=== PATIENT | male | born 1980 | race African-American/Black ===

== ENCOUNTER 2017-02-06 04:29 | Inpatient (IN) | payer MEDICAID, OTHER ==
[~2017-02-06] VITALS: Ht 177.8 cm; Wt 76.0 kg
[2017-02-06] VITALS (9 sets, daily range): BP systolic 105–139; BP diastolic 66–78; O2SAT 100
[2017-02-06] MEDS ORDERED: ONDANSETRON 4MG/2ML VIAL (J2405) IV ONE (05:30)
[2017-02-06] MEDS ORDERED: MORPHINE 4 MG/ML 1ML SYRINGE IV ONE (05:30)
[2017-02-06 05:38] LABS: BASO % 0.2 % (0.0-1.0); EOS # 0.2 K/mm3 (0.0-0.50); EOS % 1.4 % (0.0-3.0); LARGE UNSTAINED CELL # 0.1 K/mm3 (0.0-0.4); LYMPH # 2.5 K/mm3 (1.5-4.5); LYMPH % 20.8 % (24.0-44.0); MEAN CORPUSCULAR HEMOGLOBIN 31.5 pg (27.0-33.0); MEAN CORPUSCULAR HGB CONC 33.9 g/dl (32.0-36.5); MEAN CORPUSCULAR VOLUME 93.1 fl (80.0-96.0); MONO # 0.6 K/mm3 (0.0-0.8); NEUTROPHILS # 8.1 K/mm3 (1.8-7.7); NEUTROPHILS % 71.6 % (36.0-66.0); PLATELET COUNT, AUTOMATED 399 k/mm3 (150-450); RED CELL DISTRIBUTION WIDTH 11.8 % (11.5-14.5); WHITE BLOOD COUNT 11.3 K/mm3 (4.0-10.0)
--- NOTE | 2017-02-06 05:41 | REP ---
Clinical: Trauma. Comparison: 12/24/2005. Findings: Ventricles, sulci, and cisterns are normal in appearance and position. Scott-white differentiation is maintained. No acute intracranial hemorrhage, mass/mass effect, pathology or trauma noted. No extra-axial fluid collection identified. Calvarium appears intact. Sinuses are well aerated and clear. Prominence to the soft tissues overlying the bilateral temporal frontal parietal lobes (right greater than left) may represents scalp contusions although findings are somewhat similar to prior examination of 2005. Impression: No acute intracranial pathology or trauma/injury appreciated. Cannot exclude soft tissue scalp contusions. Signed by Kwan Roberson MD 02/06/2017 05:32 A
[2017-02-06 05:43] LABS: VENOUS BASE EXCESS -0.5 (-2.0-2.0); VENOUS O2 SATURATION 94.9 % (60.0-80.0); VENOUS PARTIAL PRESSURE CO2 43.5 mmHg (38.0-50.0); VENOUS PARTIAL PRESSURE O2 77.8 mmHg (30.0-50.0); VENOUS TOTAL CO2 26.2 MEQ/L (24.0-28.0)
--- NOTE | 2017-02-06 05:43 | REP ---
Clinical: Trauma . Technique: Axial noncontrast images from the skull base to the thoracic inlet with coronal and sagittal re-formations Findings: Normal alignment and lordosis is maintained. Cervical vertebral bodies including transverse processes and spinous processes are intact and there is no evidence for acute fracture / compression injury or subluxation. Spinal canal is patent. Posterior elements are intact. Paravertebral soft tissues are normal. Impression: Normal noncontrast cervical spine CT. No evidence for acute pathology or trauma/injury. Signed by Kwan Roberson MD 02/06/2017 05:34 A
[2017-02-06] MEDS ORDERED: LIDOCAINE 1% MDV 20ML VIAL SC SCH (05:45)
[2017-02-06] MEDS ORDERED: LIDOCAINE 1% SDV INJ 30 ML VIAL SC SCH (05:45)
[2017-02-06 05:48] LABS: INR 1.01
[2017-02-06] MEDS ORDERED: MIDAZOLAM INJ 5 MG/ML VIAL (J2250) As Ordered ONE (05:53)
[2017-02-06 05:55] LABS: ANION GAP 11 MEQ/L (8-16); BLOOD UREA NITROGEN 9 MG/DL (7-18); CALCIUM LEVEL 8.9 MG/DL (8.5-10.1); CARBON DIOXIDE LEVEL 23 MEQ/L (21-32); CHLORIDE LEVEL 108 MEQ/L (98-107); CREATININE FOR GFR 0.99 MG/DL (0.70-1.30); GLOMERULAR FILTRATION RATE > 60.0 (>60); GLUCOSE, FASTING 100 MG/DL (70-105); POTASSIUM SERUM 4.2 MEQ/L (3.5-5.1); SODIUM LEVEL 142 MEQ/L (136-145)
[2017-02-06] MEDS ORDERED: MIDAZOLAM INJ 2 MG/2 ML VIAL (J2250) IV ONE (06:00)
--- NOTE | 2017-02-06 06:00 | REP ---
Clinical: Trauma. Technique: Axial noncontrast images from the thoracic inlet to the upper abdomen with coronal and sagittal re-formations. Findings: There is a large left tension pneumothorax causing contralateral mediastinal shift and associated compression to the right hemithorax. Obvious collapse to the left upper lobe and left lower lobes noted. The tracheobronchial tree remains patent. The right hemithorax is relatively well aerated without consolidation/contusion, effusion or significant pneumothorax (minuscule subpleural gas noted along the medial aspect of the upper right lung zone). With the exception of the above-mentioned mediastinal shift, the thoracic aorta, pulmonary vasculature, heart and pericardium appear normal by noncontrast evaluation. No adenopathy. No obvious left rib fracture identified. Thoracic vertebral bodies and sternum appear intact. Impression: 1. Large left-sided tension pneumothorax with contralateral mediastinal shift and compression to the aerated right lung. 2. No obvious rib fracture or skeletal trauma/injury appreciated. Signed by Kwan Roberson MD 02/06/2017 05:51 A
[2017-02-06] MEDS ORDERED: ACETAMINOPHEN TAB 650MG DOSE (2X325MG) PO PRN (06:30)
[2017-02-06] MEDS ORDERED: LEVALBUTEROL 1.25 MG/0.5 ML CONCENTRATE NEB NEB PRN (06:30)
[2017-02-06] MEDS ORDERED: ETOMIDATE INJ 20MG/10ML VIAL IV STA (06:30)
[2017-02-06] MEDS ORDERED: ONDANSETRON 4MG/2ML VIAL (J2405) IV PRN (06:30)
[2017-02-06] MEDS ORDERED: ROCURONIUM BROMIDE 50 MG/5 ML VIAL IV SCH (06:30)
[2017-02-06] MEDS ORDERED: PROPOFOL 1,000 MG in APPROPRIATE DILUENT 1 EA IV SCH (06:30)
[2017-02-06] MEDS ORDERED: BISACODYL 10 MG SUPP PR PRN (06:30)
[2017-02-06] MEDS ORDERED: PERCOCET 5MG/325MG TAB PO PRN ×2 (06:30)
[2017-02-06 06:31] LABS: ABG BASE EXCESS -2.6 (-2.0-2.0); ABG PARTIAL PRESSURE CO2 42.7 mmHg (35.0-45.0); ABG PARTIAL PRESSURE O2 160.7 mmHg (75.0-100.0); ABG STANDARD HCO3 22.4 MEQ/L (22.0-26.0); ABG TOTAL CO2 24.3 MEQ/L (22.0-29.0); ABG pH (ARTERIAL) 7.349 UNITS (7.350-7.450)
--- NOTE | 2017-02-06 06:33 | REP ---
Clinical: Status post chest tube placement. Findings: Chest tube has been placed in the left upper hemithorax with re-expansion of the left lung. Small residual pneumothorax cannot be excluded. Endotracheal tube approximately 3.5 cm above the zoran. Mediastinum and cardiac silhouette are normal in appearance and position. Right hemithorax appears clear. No obvious consolidation, contusion, or effusion. Skeletal structures are intact. Impression: Status post left chest tube with appropriate re-expansion of the left lung and normal positioning to the mediastinal structures. Signed by Kwan Roberson MD 02/06/2017 06:25 A
[2017-02-06] MEDS ORDERED: DERMABOND TOPICAL SKIN ADHESIVE TOP ONE (06:45)
[2017-02-06] MEDS: KETOROLAC 30 MG/ML VIAL (J1885) IV SCH ×3 (07:00→18:40)
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
[2017-02-06] MEDS: LEVALBUTEROL 1.25 MG/0.5 ML CONCENTRATE NEB NEB SCH ×3 (08:00→19:38)
[2017-02-06] MEDS: PANTOPRAZOLE 40MG TAB (PROTONIX) PO SCH (09:00)
[2017-02-06] MEDS: DOCUSATE SODIUM 100 MG CAP PO SCH ×2 (09:00→20:46)
[2017-02-06] MEDS: HEPARIN SOD (PORCINE) 5000 UNITS/ML VIAL SC SCH ×2 (09:00→20:46)
[2017-02-06] MEDS: MOM 30ML SUSPENSION UDC PO SCH (09:00)
[2017-02-06] MEDS ORDERED: no home medications (09:11)
[2017-02-06] MEDS: KCL 20MEQ IN D5/NS 1000ML 1,000 ML IV SCH ×2 (13:09→20:46)
[2017-02-07] VITALS (9 sets, daily range): BP systolic 113–132; BP diastolic 66–75; O2SAT 100
[2017-02-07] MEDS: KETOROLAC 30 MG/ML VIAL (J1885) IV SCH ×4 (01:33→18:41)
[2017-02-07] MEDS: LEVALBUTEROL 1.25 MG/0.5 ML CONCENTRATE NEB NEB SCH ×4 (02:28→20:30)
[2017-02-07 04:38] LABS: BASO % 0.2 % (0.0-1.0); EOS # 0.1 K/mm3 (0.0-0.50); EOS % 1.2 % (0.0-3.0); LARGE UNSTAINED CELL # 0.1 K/mm3 (0.0-0.4); LARGE UNSTAINED CELL % 1.2 % (0.0-4.0); LYMPH # 1.8 K/mm3 (1.5-4.5); LYMPH % 23.4 % (24.0-44.0); MEAN CORPUSCULAR HEMOGLOBIN 31.5 pg (27.0-33.0); MEAN CORPUSCULAR HGB CONC 32.7 g/dl (32.0-36.5); MEAN CORPUSCULAR VOLUME 96.4 fl (80.0-96.0); MONO # 0.6 K/mm3 (0.0-0.8); MONO % 8.6 % (0.0-5.0); NEUTROPHILS # 4.7 K/mm3 (1.8-7.7); NEUTROPHILS % 65.4 % (36.0-66.0); RED CELL DISTRIBUTION WIDTH 11.9 % (11.5-14.5); WHITE BLOOD COUNT 7.1 K/mm3 (4.0-10.0)
[2017-02-07 04:56] LABS: PLATELET COUNT, AUTOMATED 268 k/mm3 (150-450)
[2017-02-07 05:01] LABS: ANION GAP 5 MEQ/L (8-16); BLOOD UREA NITROGEN 9 MG/DL (7-18); CALCIUM LEVEL 7.8 MG/DL (8.5-10.1); CARBON DIOXIDE LEVEL 29 MEQ/L (21-32); CHLORIDE LEVEL 106 MEQ/L (98-107); GLOMERULAR FILTRATION RATE > 60.0 (>60); GLUCOSE, FASTING 117 MG/DL (70-105); POTASSIUM SERUM 3.6 MEQ/L (3.5-5.1); SODIUM LEVEL 140 MEQ/L (136-145)
[2017-02-07 06:15] LABS: ABG BASE EXCESS 1.6 (-2.0-2.0); ABG HCO3 27.4 MEQ/L (22.0-26.0); ABG PARTIAL PRESSURE CO2 47.5 mmHg (35.0-45.0); ABG PARTIAL PRESSURE O2 158.1 mmHg (75.0-100.0); ABG TOTAL CO2 28.9 MEQ/L (22.0-29.0); ABG pH (ARTERIAL) 7.379 UNITS (7.350-7.450)
--- NOTE | 2017-02-07 08:16 | REP ---
PA and lateral chest: Comparison is 02/06/2017. The left chest tube is unchanged. There is no pneumothorax. There is a small zone of discoid atelectasis in the left costophrenic angle. Lung alonso otherwise clear. Cardiac size is normal. The anjana, mediastinum, and bony thorax are unremarkable. Signed by Aime Silva MD 02/07/2017 08:08 A
[2017-02-07] MEDS: DOCUSATE SODIUM 100 MG CAP PO SCH ×2 (08:23→20:14)
[2017-02-07] MEDS: HEPARIN SOD (PORCINE) 5000 UNITS/ML VIAL SC SCH ×2 (08:23→20:14)
[2017-02-07] MEDS: MOM 30ML SUSPENSION UDC PO SCH (08:23)
[2017-02-07] MEDS: PANTOPRAZOLE 40MG TAB (PROTONIX) PO SCH (08:23)
[2017-02-07] MEDS: KCL 20MEQ IN D5/NS 1000ML 1,000 ML IV SCH (08:23)
--- NOTE | 2017-02-07 12:58 | IPN ---
DATE: 02/07/2017 Mr. Callaways personality has changed night and day. He is quite civilized and polite. Very cooperative. In fact, he offered us an apology this morning. His pain is being well controlled at the chest tube insertion site and he is not complaining of shortness of breath. There is no leak from his chest tube. His vital signs show a T-max of 100.1. He is now 98.3! Heart rate ranges between 67 and 53 and is sinus rhythm with a respiratory rate that is constant at 18 who is 100-99% saturated on 2 liters nasal cannula. His blood pressure is ranging between 115/67 to 129/66. His intake and output the past 24 hours has been recorded as 1095 in and 561 out for a positivity of 534 mL. He has put out 11 mL from the chest tube and as noted above, there is no air leak. Weight is pending today. On physical examination, his lungs show equal breath sounds on either side. There are no wheezes, rhonchi or rales. Percussion note is full to the diaphragm. Cardiac exam is without murmurs, clicks, gallops or rubs. I cannot feel his PMI. S1 and S2 are normal. Abdomen is soft, nontender. Bowel sounds are positive. There is no hepatomegaly. No CVA tenderness. Extremities show no pretibial edema. No calf tenderness. No differential swelling of the upper extremities. Skin is warm, dry and perfuse without cyanosis or mottling, including that of the nail beds and the knees. Neck is supple. There is no jugular venous distention (JVD). No subcutaneous emphysema. Trachea is midline. Mouth shows his mucous membranes to pink and moist. Lips and commissures without lesions. There is no thrush. Eyes show his pupils to be equal and reactive, extraocular motors intact. Sclera nonicteric. Neuro shows II-XII intact along with gross motor and gross sensation intact. Gait is not tested. Psychiatric shows him to be awake and alert, oriented times three with appropriate mood and affect and conversational. His platelet count today is 7.1 with a hemoglobin and hematocrit of 13.4 and 41.0, and a platelet count of 268. Differential shows 65% neutrophils, 23% lymphocytes, 8% monocytes. There are no immature forms. No toxic granulations. His electrolytes are normal with a BUN and creatinine 9 and 0.9, glucose of 117, calcium 7.8. His chest x-ray shows his lung fully expanded to the chest wall. Costophrenic angles are sharp and there are no infiltrates either on the PA or on the lateral view. Chest tube is in satisfactory position. IMPRESSION: 1. Acute pneumothorax, impending tension. 2. Superficial laceration of the right eye. 3. Conjunctival hemorrhage right eye. 4. Inebriation resolved. 5. Aggressive combativeness resolved. PLAN AND DISCUSSION: I will discontinue his chest tube suction today. Will transfer him to the PCU. Further history was obtained now that he is sober. He denies past medical illnesses and does not take any medications at home. He has a positive travel history to the [facility] [place] and to [place]. He was previously in the . He has a cat at home, no dogs or birds. He works at [employer]. Review of systems is negative.
[2017-02-07] MEDS ORDERED: SLF 3 ML SYR IV PRN (21:15)
[2017-02-07] MEDS: SLF 3 ML SYR IV SCH (21:19)
[2017-02-08] MEDS: KETOROLAC 30 MG/ML VIAL (J1885) IV SCH ×4 (01:10→18:17)
[2017-02-08] MEDS: LEVALBUTEROL 1.25 MG/0.5 ML CONCENTRATE NEB NEB SCH ×4 (02:00→22:17)
[2017-02-08 04:45] VITALS: BP 114/72
[2017-02-08 05:10] LABS: BASO % 0.5 % (0.0-1.0); EOS # 0.2 K/mm3 (0.0-0.50); EOS % 2.4 % (0.0-3.0); LARGE UNSTAINED CELL # 0.1 K/mm3 (0.0-0.4); LARGE UNSTAINED CELL % 1.4 % (0.0-4.0); LYMPH % 26.2 % (24.0-44.0); MEAN CORPUSCULAR HEMOGLOBIN 30.9 pg (27.0-33.0); MEAN CORPUSCULAR HGB CONC 32.6 g/dl (32.0-36.5); MEAN CORPUSCULAR VOLUME 94.7 fl (80.0-96.0); MONO # 0.5 K/mm3 (0.0-0.8); MONO % 6.5 % (0.0-5.0); NEUTROPHILS # 4.5 K/mm3 (1.8-7.7); NEUTROPHILS % 63.1 % (36.0-66.0); PLATELET COUNT, AUTOMATED 262 k/mm3 (150-450); RED CELL DISTRIBUTION WIDTH 11.7 % (11.5-14.5); WHITE BLOOD COUNT 7.1 K/mm3 (4.0-10.0)
[2017-02-08 05:34] LABS: ANION GAP 8 MEQ/L (8-16); BLOOD UREA NITROGEN 9 MG/DL (7-18); CARBON DIOXIDE LEVEL 28 MEQ/L (21-32); CHLORIDE LEVEL 106 MEQ/L (98-107); CREATININE FOR GFR 0.84 MG/DL (0.70-1.30); GLOMERULAR FILTRATION RATE > 60.0 (>60); GLUCOSE, FASTING 106 MG/DL (70-105); POTASSIUM SERUM 3.4 MEQ/L (3.5-5.1); SODIUM LEVEL 142 MEQ/L (136-145)
[2017-02-08] MEDS: SLF 3 ML SYR IV SCH ×3 (06:07→20:46)
[2017-02-08 08:00] VITALS: BP 131/74
--- NOTE | 2017-02-08 08:33 | REP ---
PA and lateral chest: Comparison 02/07/2017. The left chest tube is unchanged. I suspect there is a sliver of pneumothorax in the left apex as an interval change. Tiny zone of discoid atelectasis is again noted inferiorly in the left lung, unchanged. Left lung is otherwise clear. Right lung is clear. Cardiac size is normal. The anjana, mediastinum and bony thorax are unremarkable. Impression: Sliver of pneumothorax in the left apex as an interval change. Signed by Aime Silva MD 02/08/2017 08:25 A
[2017-02-08] MEDS: DOCUSATE SODIUM 100 MG CAP PO SCH ×2 (08:40→20:45)
[2017-02-08] MEDS: MOM 30ML SUSPENSION UDC PO SCH (08:41)
[2017-02-08] MEDS: PANTOPRAZOLE 40MG TAB (PROTONIX) PO SCH (08:41)
[2017-02-08] MEDS: HEPARIN SOD (PORCINE) 5000 UNITS/ML VIAL SC SCH ×2 (08:41→20:46)
[2017-02-08] MEDS ORDERED: ROCURONIUM BROMIDE 50 MG/5 ML VIAL ONE (09:30)
[2017-02-08] MEDS ORDERED: ETOMIDATE INJ 20MG/10ML VIAL ONE (09:30)
[2017-02-08 12:00] VITALS: BP 120/64
[2017-02-08] MEDS: POTASSIUM CHLORIDE 10 MEQ SR TABLET PO SCH ×2 (12:16→20:46)
--- NOTE | 2017-02-08 13:04 | IPN ---
DATE: 02/08/2017 This is now the second hospital day for Mr. Garcia after a traumatic pneumothorax. He is doing well and his pain is being well controlled. There is no air leak off suction and his lung is fully expanded to the chest wall. His vital signs show a T-max of 99.6 with a heart rate that ranges between 59 and 63 in a sinus rhythm, a respiratory rate of 18 to 20 without the use of accessory muscles and who is 99% to 95% saturated on room air and whose blood pressure is ranging between 128/73 to 114/72. His intake and output the past 24 hours has been recorded 2250 in and 1061 out for a positivity of nearly 1200 mL. He has put 11 mL out the chest tube and there is no air leak. Weight today is 77 kg compared to 76.7 kg yesterday. On physical examination, he has equal breath sounds on either side. I hear no wheezes, rhonchi or rales. Percussion note is full to the diaphragm. Cardiac Exam: Without murmurs, clicks, gallops, or rubs. I cannot feel his PMI. S1, S2 are normal. Abdomen: Soft. Nontender. Bowel sounds are positive. No hepatomegaly. No costovertebral angle (CVA) tenderness. Extremities: Show no pretibial edema. No calf tenderness. No differential swelling of the upper extremities. Skin: Warm, dry and perfused. Without cyanosis or mottling, including that of the nail beds and knees. Neck: Supple. There is no jugular venous distention. No subcutaneous emphysema. Trachea is midline. Mouth: Shows his mucous membranes to be pink and moist. Lips and commissures are without lesions. There is no thrush. Eyes: Show his pupils to be equal and reactive. Extraocular movements intact. Sclerae nonicteric. Neurologic: Shows II-XII intact along with gross motor and gross sensation intact. Gait is not tested. Psychiatric shows him to be awake, alert, and oriented times three with appropriate mood and affect and conversational. White count is 7.1 with hemoglobin and hematocrit of 12.6 and 38.6 respectively with a platelet count of 262. Differential shows 63% neutrophils, 26% lymphocytes, 6% monocytes. There are no immature forms and no toxic granulations. His sodium is 142 with a potassium of 3.4. BUN and creatinine are 9 and 0.84 with a glucose of 106 and a calcium of 8.0. His chest x-ray shows his lung fully expanded to the chest wall. There is about a 2 mm apical cap. I see no infiltrates. The costophrenic angles are sharp. There is no subcutaneous emphysema. IMPRESSION: 1. Hospital day #2 status post traumatic pneumothorax. Seemingly resolved. 2. Superficial laceration of right eye. 3. Conjunctival hemorrhage right eye. 4. Inebriation, resolved. 5. Aggressive combativeness, resolved. 6. Hypokalemia. PLAN AND DISCUSSION: I will remove the chest tube today. I will give him some potassium today 40 twice a day. If his chest x-ray is okay tomorrow, I would plan for discharge in the morning.
[2017-02-08 16:00] VITALS: BP 128/68
[2017-02-08 20:03] VITALS: BP 114/71
[2017-02-09 00:09] VITALS: BP 124/67
[2017-02-09] MEDS: KETOROLAC 30 MG/ML VIAL (J1885) IV SCH ×4 (00:13→18:22)
[2017-02-09] MEDS: LEVALBUTEROL 1.25 MG/0.5 ML CONCENTRATE NEB NEB SCH ×4 (03:04→20:05)
[2017-02-09 05:00] VITALS: BP 136/76
[2017-02-09] MEDS: SLF 3 ML SYR IV SCH ×3 (05:28→21:06)
[2017-02-09 05:38] LABS: BASO % 0.2 % (0.0-1.0); EOS # 0.2 K/mm3 (0.0-0.50); EOS % 2.9 % (0.0-3.0); LARGE UNSTAINED CELL # 0.1 K/mm3 (0.0-0.4); LARGE UNSTAINED CELL % 1.1 % (0.0-4.0); LYMPH # 1.8 K/mm3 (1.5-4.5); LYMPH % 22.7 % (24.0-44.0); MEAN CORPUSCULAR HEMOGLOBIN 31.8 pg (27.0-33.0); MEAN CORPUSCULAR HGB CONC 33.3 g/dl (32.0-36.5); MEAN CORPUSCULAR VOLUME 95.6 fl (80.0-96.0); MONO # 0.6 K/mm3 (0.0-0.8); MONO % 8.2 % (0.0-5.0); NEUTROPHILS % 65.1 % (36.0-66.0); PLATELET COUNT, AUTOMATED 275 k/mm3 (150-450); RED CELL DISTRIBUTION WIDTH 11.7 % (11.5-14.5); WHITE BLOOD COUNT 7.6 K/mm3 (4.0-10.0)
[2017-02-09 05:58] LABS: ANION GAP 6 MEQ/L (8-16); BLOOD UREA NITROGEN 11 MG/DL (7-18); CALCIUM LEVEL 8.6 MG/DL (8.5-10.1); CARBON DIOXIDE LEVEL 27 MEQ/L (21-32); CHLORIDE LEVEL 107 MEQ/L (98-107); CREATININE FOR GFR 0.87 MG/DL (0.70-1.30); GLOMERULAR FILTRATION RATE > 60.0 (>60); GLUCOSE, FASTING 96 MG/DL (70-105); POTASSIUM SERUM 4.2 MEQ/L (3.5-5.1); SODIUM LEVEL 140 MEQ/L (136-145)
[2017-02-09 08:00] VITALS: BP 117/75
[2017-02-09] MEDS: MOM 30ML SUSPENSION UDC PO SCH (08:27)
[2017-02-09] MEDS: HEPARIN SOD (PORCINE) 5000 UNITS/ML VIAL SC SCH ×2 (08:27→21:06)
[2017-02-09] MEDS: PANTOPRAZOLE 40MG TAB (PROTONIX) PO SCH (08:27)
[2017-02-09] MEDS: DOCUSATE SODIUM 100 MG CAP PO SCH ×2 (08:28→21:06)
--- NOTE | 2017-02-09 08:31 | REP ---
Clinical: Follow up pneumothorax. Technique: PA and lateral. Comparison: 02/08/2017. Findings: Previously noted left apical chest tube has been removed and there is a large left pneumothorax with small amount of layering fluid. The mediastinum and cardiac silhouette are within normal limits. The right hemithorax is relatively clear. Skeletal structures are intact. Impression: Chest tube removed and large left pleural effusion with small amount of layering fluid is now identified. Signed by Kwan Roberson MD 02/09/2017 08:23 A
[2017-02-09 12:00] VITALS: BP 119/78
--- NOTE | 2017-02-09 13:46 | IPN ---
DATE: 02/09/2017 My intention was to discharge Mr. Garcia today; however, yesterday after pulling the chest tube, I heard him suck air. A chest x-ray today shows the lung to be away from the chest wall and has about a 50-40% pneumothorax. There is minimal subcutaneous emphysema, and there is no midline shift. He is not symptomatic, and he is not short of breath. He is oxygenating up to 95% on room air. His vital signs show a maximum temperature (Tmax) of 99.2 with a heart rate that ranges between 67 and 81 in a sinus rhythm, respiratory rate that is constant at 18, who is 94-95% saturated on room air, and his blood pressures ranging between 120/68 to 114/71. His intake and output for the past 24 hours has been recorded as 660 in, nothing out. I suspect the intake and output (I's and O's) are inaccurate. He weights 77.1 kg today compared to 77 kg yesterday. On physical examination, he has decreased breath sounds on the left side. Percussion note is full to the diaphragm. There are no wheezes, rhonchi, or rales. CARDIAC EXAM: Is without murmurs, clicks, gallops, or rubs. I cannot feel his PMI. S1, S2 are normal. ABDOMEN: Soft. Nontender. Bowel sounds are positive. There is no hepatomegaly. No costovertebral angle (CVA) tenderness. EXTREMITIES: Show no pretibial edema. No calf tenderness. No differential swelling of the upper extremities. SKIN: Warm, dry, and perfused, without cyanosis or mottling, including that of the nail beds and knees. NECK: Is supple. There is no jugular venous distention. No subcutaneous emphysema. Trachea is midline. MOUTH: Shows his mucous membranes to be pink and moist. Lips and commissures are without lesions. There is no thrush. EYES: Show his pupils to be equal and reactive. Extraocular movements intact. Sclerae nonicteric. NEUROLOGIC: Shows II-XII intact along with gross motor and gross sensation intact. Gait is not tested. PSYCHIATRIC: Shows him to be awake, alert, and oriented times three with appropriate mood and affect and conversational. His white count today is 7.6 with a hemoglobin and hematocrit of 12.5 and 37.4. Platelet count is 275 and stable. Differential shows 65% neutrophils, 22% lymphocytes, 8% monocytes. There are no immature forms, no toxic granulations. His sodium is 140 with a potassium of 4.2, improved from 3.4 yesterday after potassium supplementation. BUN and creatinine are 11 and 0.87 with a glucose of 96 and calcium 8.6. His chest x-ray is described above. There is a small air-fluid level in the costophrenic angle. IMPRESSION: 1. Hospital day #3 status post traumatic pneumothorax, continuing. 2. Superficial laceration of right eye. 3. Conjunctival hemorrhage of right eye, improved. 4. Inebriation, resolved. 5. Aggressive combativeness, resolved. 6. Hypokalemia, resolved. PLAN AND DISCUSSION: I do think that the air in his chest is secondary to him sucking air after removal of the yesterday's chest tube. There was quite a gush of air as he inhaled, even though the wound was covered with a Vaseline gauze. He is asymptomatic. I do not feel compelled to place another chest tube, as I do not think that this pneumothorax is secondary to trauma. I will observe him another 24 hours and repeat a chest x-ray. If the lung is stable or improved, I will discharge him tomorrow.
[2017-02-09 16:00] VITALS: BP 128/76
[2017-02-09 19:45] VITALS: BP 146/81
[2017-02-10] VITALS (13 sets, daily range): BP systolic 71–171; BP diastolic 71–132
[2017-02-10] MEDS: KETOROLAC 30 MG/ML VIAL (J1885) IV SCH ×4 (00:18→18:59)
[2017-02-10] MEDS: LEVALBUTEROL 1.25 MG/0.5 ML CONCENTRATE NEB NEB SCH ×4 (02:00→20:25)
[2017-02-10 05:42] LABS: BASO % 0.2 % (0.0-1.0); EOS # 0.2 K/mm3 (0.0-0.50); EOS % 3.2 % (0.0-3.0); LARGE UNSTAINED CELL # 0.1 K/mm3 (0.0-0.4); LARGE UNSTAINED CELL % 1.2 % (0.0-4.0); LYMPH # 1.6 K/mm3 (1.5-4.5); LYMPH % 20.3 % (24.0-44.0); MEAN CORPUSCULAR HEMOGLOBIN 32.3 pg (27.0-33.0); MEAN CORPUSCULAR HGB CONC 34.2 g/dl (32.0-36.5); MEAN CORPUSCULAR VOLUME 94.3 fl (80.0-96.0); MONO # 0.5 K/mm3 (0.0-0.8); MONO % 6.7 % (0.0-5.0); NEUTROPHILS # 5.1 K/mm3 (1.8-7.7); NEUTROPHILS % 68.5 % (36.0-66.0); PLATELET COUNT, AUTOMATED 276 k/mm3 (150-450); RED CELL DISTRIBUTION WIDTH 11.7 % (11.5-14.5); WHITE BLOOD COUNT 7.5 K/mm3 (4.0-10.0)
[2017-02-10 05:55] LABS: ANION GAP 7 MEQ/L (8-16); BLOOD UREA NITROGEN 12 MG/DL (7-18); CALCIUM LEVEL 8.6 MG/DL (8.5-10.1); CARBON DIOXIDE LEVEL 27 MEQ/L (21-32); CHLORIDE LEVEL 102 MEQ/L (98-107); GLOMERULAR FILTRATION RATE > 60.0 (>60); GLUCOSE, FASTING 110 MG/DL (70-105); POTASSIUM SERUM 3.6 MEQ/L (3.5-5.1); SODIUM LEVEL 136 MEQ/L (136-145)
[2017-02-10] MEDS: SLF 3 ML SYR IV SCH ×3 (05:57→20:52)
[2017-02-10] MEDS: MOM 30ML SUSPENSION UDC PO SCH (09:00)
[2017-02-10] MEDS: HEPARIN SOD (PORCINE) 5000 UNITS/ML VIAL SC SCH ×2 (09:14→20:50)
[2017-02-10] MEDS: PANTOPRAZOLE 40MG TAB (PROTONIX) PO SCH (09:14)
[2017-02-10] MEDS: DOCUSATE SODIUM 100 MG CAP PO SCH ×2 (09:14→20:50)
[2017-02-10] MEDS ORDERED: MIDAZOLAM INJ 2 MG/2 ML VIAL (J2250) As Ordered ONE ×2 (11:03→11:04)
[2017-02-10] MEDS ORDERED: FLUMAZENIL 0.5 MG/5 ML VIAL As Ordered ONE (11:04)
[2017-02-10] MEDS ORDERED: LIDOCAINE 1% MDV 20ML VIAL As Ordered ONE (11:04)
--- NOTE | 2017-02-10 12:13 | REP ---
TWO-VIEW CHEST: Two views of the chest are performed. COMPARISON: 02/09/2017. There is a large left pneumothorax seen on prior exam. The right lung is unchanged. The heart is normal in size. There is a mild shift of midline structures to the right. IMPRESSION: Large left pneumothorax and small left effusion. Signed by Aime Sctot MD 02/10/2017 01:50 P
--- NOTE | 2017-02-10 12:15 | REP ---
SINGLE VIEW CHEST: Single portable view of the chest is performed. There is placement of a left chest tube. The previously noted pneumothorax has resolved. Patchy atelectasis is seen in the left mid and lower lung zones. The heart is normal in size. IMPRESSION: Placement of left chest tube with resolution of the large left pneumothorax. Mild atelectatic changes left lung. Signed by Aime Scott MD 02/10/2017 01:50 P
--- NOTE | 2017-02-10 18:12 | IPN ---
DATE: 02/10/2017 Mr. Garcia is essentially asymptomatic. Nonetheless, he has a 100% pneumothorax, and he can feel subcutaneous air and emphysema. His vital signs show a maximum temperature (T max) of 100.2 with a heart rate that ranges between 93 and 85 and is sinus rhythm, a respiratory rate that is constant at 18 without the use of accessory muscles who is 96-95% saturated on room air and whose blood culture is ranging between 131/84 to 152/76. His intake and output over the past 24 hours has been recorded as 2000 in and 1250 out for a positivity of 750 mL. He weighs 76.5 kg today compared to 77.1 kg yesterday. PHYSICAL EXAMINATION: He has markedly decreased breath sounds on the left side. Percussion note is full to the diaphragm. I can feel subcutaneous emphysema over his left pectoralis muscle. There is also some at the base of the neck. Cardiac exam is without murmurs, clicks, gallops or rubs. I cannot feel his point of maximum impulse (PMI). S1, S2 are normal. Abdomen is soft and nontender. Bowel sounds are positive. There is no hepatomegaly. No costovertebral angle tenderness. Extremities show no pretibial edema. No calf tenderness. No differential swelling of the upper extremities. Skin is warm, dry and perfused without cyanosis or mottling, including that of the nail beds and the knees. Neck is supple. There is no jugular venous distention. There is subcutaneous emphysema at the base of the neck. Trachea is midline. Mouth shows his mucous membranes to be pink and moist. Lips and commissures without lesions. There is no thrush. Eyes show her pupils to be equal and reactive. Extraocular motions intact. Sclerae anicteric. Neurologic shows II-XII intact along with gross motor and gross sensation intact. Gait is not tested. His white count today is 7.5 with a hemoglobin and hematocrit of 12.8 and 37.5 and a platelet count of 276. Differential shows 68% neutrophils, 20% lymphocytes , 6% monocytes. There are no immature forms. No toxic granulations. Electrolytes are normal with a potassium that is again trending down to 3.6. BUN and creatinine are 20 and 0.9 with a glucose of 110 and a calcium of 8.6. His chest x-ray shows a complete nearly 100% pneumothorax on the left side. There does look to be a slight mediastinal shift to the right. He has a small air fluid level at the costophrenic angle on the left side. IMPRESSION: 1. Traumatic pneumothorax left side, hospital day #4. 2. Superficial laceration right eye. 3. Conjunctival hemorrhage of the right eye, continuing but improved. 4. Inebriation, resolved. 5. Aggressive combativeness, resolved. 6. Hypokalemia, resolved. 7. Recurrent pneumothorax. PLAN AND DISCUSSION: When I took the first chest tube out, he was not leaking, and I thought that his problem would be resolved. I did hear him suck some air in when I initially took the chest tube out. I thought that this was going to resolve itself and at least the lung would be in the same position it was yesterday with approximately 30-40% pneumothorax. It is now 100% and he is asymptomatic, I will place another chest tube to expand the lung. I suspect that he may have a leaking emphysematous bleb. GILDARDO
[2017-02-10] MEDS: NORCO, ANEXSIA 5/325MG TABLET (HYDROcodone/ACETAMINOPHEN) PO PRN (20:52)
[2017-02-11] VITALS: BP 115/65
[2017-02-11] MEDS: KETOROLAC 30 MG/ML VIAL (J1885) IV SCH (00:05)
[2017-02-11] MEDS: LEVALBUTEROL 1.25 MG/0.5 ML CONCENTRATE NEB NEB SCH ×4 (02:00→20:15)
[2017-02-11 04:00] VITALS: BP 121/60
[2017-02-11 05:38] LABS: BASO % 0.2 % (0.0-1.0); EOS # 0.3 K/mm3 (0.0-0.50); EOS % 3.3 % (0.0-3.0); LARGE UNSTAINED CELL # 0.1 K/mm3 (0.0-0.4); LARGE UNSTAINED CELL % 1.6 % (0.0-4.0); LYMPH # 2.3 K/mm3 (1.5-4.5); LYMPH % 25.8 % (24.0-44.0); MEAN CORPUSCULAR HEMOGLOBIN 31.4 pg (27.0-33.0); MEAN CORPUSCULAR HGB CONC 32.7 g/dl (32.0-36.5); MONO # 0.5 K/mm3 (0.0-0.8); NEUTROPHILS # 5.2 K/mm3 (1.8-7.7); PLATELET COUNT, AUTOMATED 276 k/mm3 (150-450); RED CELL DISTRIBUTION WIDTH 11.7 % (11.5-14.5); WHITE BLOOD COUNT 8.2 K/mm3 (4.0-10.0)
[2017-02-11] MEDS: SLF 3 ML SYR IV SCH ×3 (05:44→20:58)
[2017-02-11 05:59] LABS: ANION GAP 5 MEQ/L (8-16); BLOOD UREA NITROGEN 15 MG/DL (7-18); CALCIUM LEVEL 8.4 MG/DL (8.5-10.1); CARBON DIOXIDE LEVEL 29 MEQ/L (21-32); CHLORIDE LEVEL 100 MEQ/L (98-107); CREATININE FOR GFR 0.87 MG/DL (0.70-1.30); GLOMERULAR FILTRATION RATE > 60.0 (>60); GLUCOSE, FASTING 109 MG/DL (70-105); POTASSIUM SERUM 3.7 MEQ/L (3.5-5.1); SODIUM LEVEL 134 MEQ/L (136-145)
--- NOTE | 2017-02-11 06:01 | RO ---
DATE OF PROCEDURE: 02/10/2017 PREPROCEDURE DIAGNOSIS: Left pneumothorax almost complete. POSTPROCEDURE DIAGNOSIS: Left pneumothorax almost complete. PROCEDURE: Insertion of left lateral chest tube anteriorly. SURGEON: Dr. Jatinder Mcgrath. OVERHEAD CLEANER: ANESTHESIA: ESTIMATED BLOOD LOSS: PROCEDURE: Under satisfactory moderate sedation achieved eventually with 6 mg of Versed, patient was prepped and draped in the usual sterile fashion. The approximate intercostal space was infiltrated with 1% Xylocaine down to the pleura. Incision was made and tunnel was created in the chest anteriorly. A #20 chest tube was placed without difficulty. Chest tube was secured in place with #2 Tevdek suture. It was connected to the Pleur-evac. Patient tolerated the procedure well and chest x-ray is pending.
--- NOTE | 2017-02-11 06:38 | REP ---
Clinical: Recurrent pneumothorax. Comparison: 02/06/2017. Findings: A left-sided chest tube is identified extending to the lung apex without residual pneumothorax. Moderate consolidations involving the left upper lobe, lingula and left lower lobe are identified along with small amount of left basilar fluid as well as minimal right basilar atelectasis. Moderate amount of subcutaneous emphysema noted throughout the left hemithorax and predominately surrounding the pectoralis muscles as well as extending and surrounding the transversalis along the left flank. The underlying lung alonso appear relatively normal and without significant emphysematous or interstitial disease. The tracheobronchial tree appears patent. The mediastinum is normal. With the exception of the above-mentioned subcutaneous emphysema, surrounding musculoskeletal structures are grossly unremarkable. Impression: 1. No residual pneumothorax. Moderate subcutaneous emphysema within the left hemithorax extending towards the left flank. 2. Moderate areas of consolidation involving the left upper lobe, lingula and left lower lobe with small left basilar pleural fluid and mild right basilar atelectasis. 3. No evidence for underlying chronic interstitial disease or emphysematous changes. Signed by Kwan Roberson MD 02/11/2017 06:29 A
[2017-02-11 08:00] VITALS: BP 118/72
[2017-02-11] MEDS: DOCUSATE SODIUM 100 MG CAP PO SCH ×2 (08:59→20:19)
[2017-02-11] MEDS: HEPARIN SOD (PORCINE) 5000 UNITS/ML VIAL SC SCH ×2 (08:59→20:19)
[2017-02-11] MEDS: PANTOPRAZOLE 40MG TAB (PROTONIX) PO SCH (09:00)
[2017-02-11] MEDS: MOM 30ML SUSPENSION UDC PO SCH (09:00)
--- NOTE | 2017-02-11 09:29 | REP ---
CHEST, TWO VIEWS: Two views of the chest are performed and compared to prior study of 02/10/2017 as well as other prior exams. There is no pneumothorax. Left chest tube is again noted. The superior tip is more inferiorly located than the most recent exam, at the level of the aortic arch. There are again mild left basilar atelectatic changes. Heart is normal in size and the mediastinal silhouette is unremarkable. Signed by Aime Scott MD 02/11/2017 07:44 P
[2017-02-11 12:00] VITALS: BP 127/72
[2017-02-11] MEDS: NORCO, ANEXSIA 5/325MG TABLET (HYDROcodone/ACETAMINOPHEN) PO PRN ×2 (15:16→20:20)
[2017-02-11 16:00] VITALS: BP 119/70
[2017-02-11 20:03] VITALS: BP 112/66
[2017-02-12] VITALS (7 sets, daily range): BP systolic 106–128; BP diastolic 56–86
[2017-02-12] MEDS: LEVALBUTEROL 1.25 MG/0.5 ML CONCENTRATE NEB NEB SCH ×4 (01:15→20:00)
[2017-02-12] MEDS: SLF 3 ML SYR IV SCH ×3 (05:36→20:32)
[2017-02-12 06:05] LABS: BASO % 0.3 % (0.0-1.0); EOS # 0.2 K/mm3 (0.0-0.50); EOS % 2.7 % (0.0-3.0); LARGE UNSTAINED CELL # 0.2 K/mm3 (0.0-0.4); LARGE UNSTAINED CELL % 1.8 % (0.0-4.0); LYMPH # 1.7 K/mm3 (1.5-4.5); LYMPH % 18.5 % (24.0-44.0); MEAN CORPUSCULAR HEMOGLOBIN 31.4 pg (27.0-33.0); MEAN CORPUSCULAR HGB CONC 32.5 g/dl (32.0-36.5); MEAN CORPUSCULAR VOLUME 96.7 fl (80.0-96.0); MONO # 0.8 K/mm3 (0.0-0.8); MONO % 8.5 % (0.0-5.0); NEUTROPHILS # 6.3 K/mm3 (1.8-7.7); NEUTROPHILS % 68.2 % (36.0-66.0); PLATELET COUNT, AUTOMATED 303 k/mm3 (150-450); RED CELL DISTRIBUTION WIDTH 11.4 % (11.5-14.5); WHITE BLOOD COUNT 9.2 K/mm3 (4.0-10.0)
[2017-02-12 06:21] LABS: ANION GAP 5 MEQ/L (8-16); BLOOD UREA NITROGEN 15 MG/DL (7-18); CALCIUM LEVEL 8.7 MG/DL (8.5-10.1); CARBON DIOXIDE LEVEL 30 MEQ/L (21-32); CHLORIDE LEVEL 103 MEQ/L (98-107); CREATININE FOR GFR 0.97 MG/DL (0.70-1.30); GLOMERULAR FILTRATION RATE > 60.0 (>60); GLUCOSE, FASTING 104 MG/DL (70-105); POTASSIUM SERUM 4.2 MEQ/L (3.5-5.1); SODIUM LEVEL 138 MEQ/L (136-145)
[2017-02-12] MEDS: DOCUSATE SODIUM 100 MG CAP PO SCH ×2 (08:05→20:32)
[2017-02-12] MEDS: MOM 30ML SUSPENSION UDC PO SCH (08:05)
[2017-02-12] MEDS: PANTOPRAZOLE 40MG TAB (PROTONIX) PO SCH (08:05)
--- NOTE | 2017-02-12 08:17 | REP ---
Clinical: Follow up pneumothorax. Technique: PA and lateral. Comparison: 02/11/2017. Findings: Left-sided chest tube in stable position. Moderate subcutaneous emphysema and left basilar pleuroparenchymal changes remain relatively stable. No obvious residual, significant left-sided pneumothorax appreciated. The right hemithorax is clear. The mediastinum and cardiac silhouette are normal. Skeletal structures are intact. Impression: 1. Stable pleuroparenchymal changes to the left hemithorax including subcutaneous emphysema and possible small amount of pleural fluid. 2. No obvious residual pneumothorax identified. Signed by Kwan Roberson MD 02/12/2017 08:08 A
[2017-02-12] MEDS: HEPARIN SOD (PORCINE) 5000 UNITS/ML VIAL SC SCH ×2 (09:29→20:32)
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
[2017-02-12] MEDS: NORCO, ANEXSIA 5/325MG TABLET (HYDROcodone/ACETAMINOPHEN) PO PRN ×2 (16:57→23:53)
[2017-02-13] VITALS (7 sets, daily range): BP systolic 116–136; BP diastolic 52–81; O2SAT 97
--- NOTE | 2017-02-13 00:03 | IPN ---
DATE: 02/12/2017 Mr. Garcia's pain at the chest tube insertion site is being well controlled. There is no air leak today. He is breathing well and not complaining of shortness of breath or cough. His vital signs show a maximum temperature (T max) of 99.5 with a heart rate that ranges between 66 and 72 and is sinus rhythm, respiratory rate of 18 to 20 without the use of accessory muscles who is 97 to 96% saturated on room air and whose blood pressure is ranging between 123/75 to 113/56. His intake and output over the past 24 hours has been recorded as 960 in and 360 out for a positivity of 600 mL. He has put 10 mL out the chest tube and as noted above, there is no air leak. Weight today is 77.7 kg compared to 76.4 kg yesterday. PHYSICAL EXAMINATION: On physical examination, his lungs show normal vesicular sounds with equal breath sounds on either side. Percussion note is full to the diaphragm. Subcutaneous emphysema over the pectoralis muscles is much diminished. Cardiac exam is without murmurs, clicks, gallops or rubs. I cannot feel his point of maximum impulse (PMI). S1, S2 are normal. Abdomen is soft and nontender. Bowel sounds are positive. There is no hepatomegaly. Extremities show no pretibial edema. No calf tenderness. No differential swelling of the upper extremities. Skin is warm, dry and perfused without cyanosis or mottling, including that of the nail beds and the knees. Neck is supple. There is no jugular venous distention, no subcutaneous emphysema. Trachea is midline. Mouth shows his mucous membranes to be pink and moist. Lips and commissures without lesions. There is no thrush. Eyes show his pupils to be equal and reactive. Extraocular motions intact. Sclerae anicteric. Neurologic shows II-XII intact along with gross motor and gross sensation intact. Gait is not tested. Psychiatric shows him to be awake and alert, oriented times three with appropriate mood and affect and conversational. His white count today is 9.2 with a hemoglobin and hematocrit of 12.9 and 39.7. Platelet count is 303 and stable and differential shows 68% neutrophils, 18% lymphocytes, 8% monocytes. There are no immature forms. No toxic granulations. Electrolytes are normal with a BUN and creatinine of 15 and 0.97, a glucose of 104 and a calcium of 8.7. His chest x-ray today shows the lung fully expanded to the chest wall. The subcutaneous emphysema is almost gone. Costophrenic angles are sharp, and there are no infiltrates. Chest tube is in good place anteriorly. IMPRESSION: 1. Traumatic pneumothorax left side, hospital day #6. 2. Superficial laceration left eye, healing well. 3. Conjunctival hemorrhage of right eye, continuing but improved. 4. Knee abrasion, resolved. 5. Aggressive combativeness, resolved. 6. Hypokalemia, resolved. 7. Recurrent pneumothorax, resolved with another chest tube. PLAN AND DISCUSSION: I will remove his chest tube suction today. Hopefully the lung will remain up, and I will get to remove it tomorrow.
[2017-02-13] MEDS: LEVALBUTEROL 1.25 MG/0.5 ML CONCENTRATE NEB NEB SCH ×4 (02:00→20:28)
[2017-02-13] MEDS: SLF 3 ML SYR IV SCH ×3 (05:08→21:17)
[2017-02-13 08:03] LABS: MEAN CORPUSCULAR HEMOGLOBIN 31.5 pg (27.0-33.0); MEAN CORPUSCULAR HGB CONC 33.3 g/dl (32.0-36.5); MEAN CORPUSCULAR VOLUME 94.8 fl (80.0-96.0); RED CELL DISTRIBUTION WIDTH 11.6 % (11.5-14.5); WHITE BLOOD COUNT 7.4 K/mm3 (4.0-10.0)
[2017-02-13 08:11] LABS: ANION GAP 4 MEQ/L (8-16); BLOOD UREA NITROGEN 11 MG/DL (7-18); CALCIUM LEVEL 9.1 MG/DL (8.5-10.1); CARBON DIOXIDE LEVEL 32 MEQ/L (21-32); CHLORIDE LEVEL 100 MEQ/L (98-107); CREATININE FOR GFR 0.95 MG/DL (0.70-1.30); GLOMERULAR FILTRATION RATE > 60.0 (>60); GLUCOSE, FASTING 98 MG/DL (70-105); POTASSIUM SERUM 3.9 MEQ/L (3.5-5.1); SODIUM LEVEL 136 MEQ/L (136-145)
[2017-02-13] MEDS: PANTOPRAZOLE 40MG TAB (PROTONIX) PO SCH (08:54)
[2017-02-13] MEDS: DOCUSATE SODIUM 100 MG CAP PO SCH ×2 (08:54→21:00)
[2017-02-13] MEDS: HEPARIN SOD (PORCINE) 5000 UNITS/ML VIAL SC SCH ×2 (08:54→21:17)
[2017-02-13] MEDS: MOM 30ML SUSPENSION UDC PO SCH (08:54)
--- NOTE | 2017-02-13 10:06 | REP ---
TWO VIEW CHEST: Two views of the chest are performed. A left chest tube is again noted. There may be a very tiny left apical pneumothorax. Mild left basilar atelectatic change and pleural fluid is noted. The atelectatic change has improved since the prior exam. The cardiomediastinal silhouette is unchanged. Signed by Aime Scott MD 02/13/2017 05:18 P
--- NOTE | 2017-02-13 21:42 | IPN ---
DATE: 02/13/2017 Mr. Garcia has been off suction now for 24 hours and there is no air leak. His lung is fully expanded to the chest wall. I am therefore going to remove his chest tube. His vital signs show a T-max of 98.9 with a heart rate that ranges between 66 and 73 in a sinus rhythm, respiratory rate is constant 18, who is 99 to 97% saturated on room air. His blood pressure is ranging between 120/71 to 116/58. His intake and output over the past 24 hours has been recorded as 1080 in and 1227 out for a negativity of 147 mL. He has put 2 mL out of the chest tube and as noted above there is no air leak. Weight today is 75.9 kg compared to 77.7 kg yesterday. On physical examination, his lungs show equal breath sounds on either side. There are no wheezes, rhonchi or rales. Cardiac exam without murmurs, clicks, gallops or rubs. I cannot feel his point of maximal impulse (PMI). S1 and S2 are normal. Abdomen is soft and nontender. Bowel sounds are positive. There is no hepatomegaly. No costovertebral angle (CVA) tenderness. Extremities show no pretibial edema. No calf tenderness. No differential swelling of the upper extremities. Skin is warm, dry and perfused without cyanosis or mottling including that of the nail beds and the knees. Neck is supple. There is no jugular venous distention. No subcutaneous emphysema. Trachea is midline. Mouth shows his mucous membranes to be pink and moist. Lips and commissures without lesions. No thrush. Eyes show his pupils to be equal, reactive. Extraocular muscles intact. Sclera anicteric. Neuro shows II through XII intact. Gross motor and gross sensation intact. Gait is not tested. Psychiatric shows him to be awake, alert and oriented times three with appropriate mood, affect and conversational. His white count today is 7.4 with a hemoglobin and hematocrit of 12.7 and 38.2, and a platelet count of 298. Chemistry showed normal electrolytes with a BUN and creatinine of 11 and 0.95, a glucose of 98 and a calcium of 9.1. His chest x-ray shows his lung is fully expanded to chest wall. There are no infiltrates. The mediastinum is in the midline and the costophrenic angles are sharp. IMPRESSION: 1. Traumatic pneumothorax left side. Hospital day #7. 2. Superficial laceration left eye, healing. 3. Conjunctival hemorrhage right eye, improving. 4. Inebriation, resolved. 5. Aggressive combativeness, resolved. 6. Hypokalemia, resolved. 7. Recurrent pneumothorax, resolved with chest tube. PLAN AND DISCUSSION: I will remove the chest tube today. If his lung stays up we will consider discharging him tomorrow.
[2017-02-14] VITALS: BP 138/82
[2017-02-14] MEDS: LEVALBUTEROL 1.25 MG/0.5 ML CONCENTRATE NEB NEB SCH ×2 (01:48→07:13)
[2017-02-14 04:00] VITALS: BP 125/67
[2017-02-14 05:36] LABS: ANION GAP 4 MEQ/L (8-16); BLOOD UREA NITROGEN 11 MG/DL (7-18); CALCIUM LEVEL 9.1 MG/DL (8.5-10.1); CARBON DIOXIDE LEVEL 32 MEQ/L (21-32); CHLORIDE LEVEL 98 MEQ/L (98-107); CREATININE FOR GFR 0.96 MG/DL (0.70-1.30); GLOMERULAR FILTRATION RATE > 60.0 (>60); GLUCOSE, FASTING 103 MG/DL (70-105); POTASSIUM SERUM 3.8 MEQ/L (3.5-5.1); SODIUM LEVEL 134 MEQ/L (136-145)
[2017-02-14] MEDS: SLF 3 ML SYR IV SCH (05:57)
[2017-02-14 08:00] VITALS: BP 137/85
--- NOTE | 2017-02-14 08:14 | REP ---
Chest x-ray: Two views. History: Pneumothorax. Comparison chest x-ray: February 13, 2017. Findings: The left chest tube has been removed from the left thorax in the interval since yesterday's chest x-ray. There is no significant pneumothorax. A tiny sliver of apical pleural air persists on the left approximately 1 mm. There is slight blunting of the left lateral pleural angle as before. No infiltrate is seen. Right hemithorax remains clear. There is some extrathoracic subcutaneous emphysema along the left lateral chest wall unchanged. Impression: Status post left chest tube removal. No significant pneumothorax. Signed by El Crook MD 02/14/2017 08:37 A
[2017-02-14] MEDS: MOM 30ML SUSPENSION UDC PO SCH (08:18)
[2017-02-14] MEDS: DOCUSATE SODIUM 100 MG CAP PO SCH (08:18)
[2017-02-14] MEDS: HEPARIN SOD (PORCINE) 5000 UNITS/ML VIAL SC SCH (08:19)
[2017-02-14] MEDS: PANTOPRAZOLE 40MG TAB (PROTONIX) PO SCH (08:20)
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
== END 2017-02-14 11:37 | disposition home or self-care (01) | DRG 135 ==
LOC: EDBD 04:29 → M ED 05:11 → M ED INP 06:27 → M ICU 08:20 → M PCU 02-07 17:02
PROVIDERS: ADMIT Thoracic Surgery (Cardiothoracic Vascular Surgery); ATTEND Thoracic Surgery (Cardiothoracic Vascular Surgery)
PROC: 5A1935Z Respiratory Ventilation, Less than 24 Consecutive Hours (ICD-10-PCS; principal; 2017-02-06)
PROC: 0W9B30Z Drainage of Left Pleural Cavity with Drainage Device, Percutaneous Approach (ICD-10-PCS; 2017-02-06)
PROC: 0W9B30Z Drainage of Left Pleural Cavity with Drainage Device, Percutaneous Approach (ICD-10-PCS; 2017-02-10)
DX: S27.0XXA Traumatic pneumothorax, initial encounter (principal); J93.0 Spontaneous tension pneumothorax; H11.31 Conjunctival hemorrhage, right eye; F10.129 Alcohol abuse with intoxication, unspecified; E87.6 Hypokalemia; Y04.0XXA Assault by unarmed brawl or fight, initial encounter

== ENCOUNTER 2019-04-24 09:03 | Inpatient (IN) | payer MEDICAID, OTHER, SELFPAY ==
[~2019-04-24] VITALS: Ht 175.3 cm; Wt 68.7 kg
[~2019-04-24 09:03] MED LIST: no home medications
[2019-04-24 09:47] LABS: HEMATOCRIT 47.4 % (42.0-52.0); HEMOGLOBIN 15.8 g/dl (13.5-17.5); MEAN CORPUSCULAR HEMOGLOBIN 31.5 pg (27.0-33.0); MEAN CORPUSCULAR HGB CONC 33.3 g/dl (32.0-36.5); MEAN CORPUSCULAR VOLUME 94.4 fl (80.0-96.0); PLATELET COUNT, AUTOMATED 349 10^3/uL (150-450); RED BLOOD COUNT 5.02 10^6/uL (4.30-6.10); WHITE BLOOD COUNT 10.2 10^3/uL (4.0-10.0)
[2019-04-24 10:31] LABS: ACETAMINOPHEN LEVEL < 2.0 UG/ML (10.0-30.0); ALBUMIN 4.6 GM/DL (3.2-5.2); ALT/SGPT 29 U/L (12-78); BILIRUBIN,DIRECT 0.2 MG/DL (0.0-0.2); BILIRUBIN,TOTAL 0.5 MG/DL (0.2-1.0); BLOOD UREA NITROGEN 8 MG/DL (7-18); CARBON DIOXIDE LEVEL 32 MEQ/L (21-32); CHLORIDE LEVEL 104 MEQ/L (98-107); CREATININE FOR GFR 0.86 MG/DL (0.70-1.30); ETHYL ALCOHOL (ETHANOL) 0.184 % (0.000-0.010); GLOMERULAR FILTRATION RATE > 60.0 (>60); GLUCOSE, FASTING 99 MG/DL (70-100); POTASSIUM SERUM 4.2 MEQ/L (3.5-5.1); SALICYLATE LEVEL 1.8 MG/DL (5.0-30.0); SODIUM LEVEL 142 MEQ/L (136-145)
[2019-04-24 10:56] LABS: AMPHETAMINES LEVEL URINE NEGATIVE (NEGATIVE); BARBITURATES URINE NEGATIVE (NEGATIVE); BENZODIAZEPINES URINE NEGATIVE (NEGATIVE); CANNABINOIDS URINE NEGATIVE (NEGATIVE); COCAINE METABOLITE URINE POSITIVE (NEGATIVE); METHADONE URINE NEGATIVE (NEGATIVE); OPIATES URINE NEGATIVE (NEGATIVE); PHENCYCLIDINE URINE NEGATIVE (NEGATIVE)
[2019-04-25] MEDS ORDERED: NICOTINE 21MG/24HR 1 EA TRANSDERMAL TD SCH (09:00)
[2019-04-25] MEDS ORDERED: MAALOX 30 ML SUSP *UDC PO PRN (15:00)
[2019-04-25] MEDS ORDERED: IBUPROFEN 400 MG TAB PO PRN (15:00)
[2019-04-25] MEDS ORDERED: MOM 30ML SUSPENSION UDC PO PRN (15:00)
[2019-04-25 17:43] VITALS: BP 129/90
--- NOTE | 2019-04-25 20:11 | ECGEPIP ---
[facility] - ED Test Date: 2019-04-24 Pat Name: MEGAN PRESLEY Department: Room: - Gender: Male [employer]: pmo : [id number] Requested By: BERENICE Horta Order Number: [id number] Reading MD: Jl Rai Measurements Intervals [place] Rate: 64 P: 76 NE: 193 QRS: 74 QRSD: 88 T: 67 QT: 388 QTc: 402 Interpretive Statements SINUS RHYTHM WITH SINUS ARRHYTHMIA INCOMPLETE RIGHT BUNDLE BRANCH BLOCK NO PRIORS FOR COMPARISON Electronically Signed on 04-25-2019 20:11:26 EDT by Jl Rai
[2019-04-26 06:36] VITALS: BP 114/81
[2019-04-26] MEDS ORDERED: NICOTINE 21MG/24HR 1 EA TRANSDERMAL TD PRN (08:00)
[2019-04-26] MEDS ORDERED: LORazepam 2 MG TAB PO PRN (12:00)
[2019-04-26] MEDS: MULTIVITAMINS/MINERALS THERAP 1 TAB PO SCH (12:31)
[2019-04-26] MEDS: FOLIC ACID 1 MG TAB PO SCH (12:31)
[2019-04-26] MEDS: THIAMINE 100 MG TAB PO SCH ×2 (12:31→21:48)
[2019-04-26] MEDS ORDERED: SERTRALINE HCL 25 MG TABLET PO ONE (14:00)
[2019-04-26] MEDS ORDERED: hydrOXYzine 25 MG TAB PO PRN (14:30)
[2019-04-26] MEDS: NALTREXONE 50 MG TAB PO SCH (14:38)
[2019-04-26 18:00] VITALS: BP 146/82
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
--- NOTE | 2019-04-26 23:07 | HPE ---
DATE OF ADMISSION: 04/25/2019 HISTORY OF THE PRESENT ILLNESS: Please refer to psychiatric history and evaluation for further details on this admission. This examination and history is intended for medical issues which may need treatment, followup, or consult on this 38-year-old male. ALLERGIES: No known allergies. PRIMARY CARE PROVIDER: He currently has none. SOCIAL HISTORY: He is single. Ethyl alcohol (EtOH): He drinks several times a week of beer or liquor to complete intoxication. Smokes: Less than one-half pack of cigarettes per day. Recreational drug use: Cocaine. PAST MEDICAL HISTORY: Negative. PAST SURGICAL HISTORY: Chest tube for traumatic pneumothorax. HOME MEDICATIONS: None. FAMILY HISTORY: Mother and well. Father alive and well. LABORATORY STUDIES: Urine was positive for cocaine. Ethyl alcohol was 0.184. EKG showed sinus rhythm White was 10.2, hemoglobin 15.8 and hematocrit 47.4, platelets 349. Electrolytes are normal. Anion gap 6, BUN 8, creatinine 0.86. REVIEW OF SYSTEMS: Ten systems review was done, was unremarkable. Patient had no complaints. Patient only had a few self-inflicted lacerations on the inside of both wrists. No redness or drainage. PHYSICAL EXAMINATION: A 38-year-old cooperative male in no acute distress. Height 69 inches, weight 68.7, body mass index (BMI) 22.4. Blood pressure 109/68, pulse 60, respirations 17, temperature 97.8, oxygen saturation (O2 sat) 98% on room air. The patient is alert and oriented times three. Pupils are equal and reactive to light. Extraocular movements intact. Cornea and sclerae clear. Conjunctivae is normal. No facial asymmetry. Pharynx: Tongue and gums pink and moist. Tongue is midline. Neck is supple without lymphadenopathy. No thyromegaly. No goiter. Carotids 2+ without bruits. Chest is clear to auscultation without wheeze or retractions. Heart is regular. Abdomen: Benign. Bowel sounds positive. Genital/Rectal: Not done. Extremities: No cyanosis, clubbing or edema. A few superficial laceration inside both wrists. No redness or drainage. Peripheral pulses equal and palpable bilaterally. Skin is warm and dry. IMPRESSION AND PLAN: Psychiatric plan per psychiatry. No acute medical issues. EKG on file in the ER shows sinus rhythm with sinus arrhythmia, incomplete right bundle branch block. MTDD
[2019-04-27 06:19] VITALS: BP 132/71
[2019-04-27] MEDS ORDERED: SERTRALINE HCL 25 MG TABLET PO SCH (09:00)
[2019-04-27] MEDS: NALTREXONE 50 MG TAB PO SCH (09:34)
[2019-04-27] MEDS: FOLIC ACID 1 MG TAB PO SCH (09:34)
[2019-04-27] MEDS: MULTIVITAMINS/MINERALS THERAP 1 TAB PO SCH (09:34)
[2019-04-27] MEDS: THIAMINE 100 MG TAB PO SCH (09:34)
[2019-04-27] MEDS ORDERED: HYDR-3363 PO (10:48)
[2019-04-27] MEDS ORDERED: SERT25TA21 PO (10:48)
[2019-04-27] MEDS ORDERED: NALT50TA4 PO (10:48)
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
== END 2019-04-27 12:30 | disposition home or self-care (01) | DRG 754 ==
LOC: M ED 09:03 → M ED INP 04-25 15:00 → M PSY 04-25 17:29
PROVIDERS: ADMIT Psychiatry & Neurology Addiction Medicine; ATTEND Psychiatry & Neurology Addiction Medicine
DX: F32.9 Major depressive disorder, single episode, unspecified (principal); F10.94 Alcohol use, unspecified with alcohol-induced mood disorder; F17.200 Nicotine dependence, unspecified, uncomplicated; F15.90 Other stimulant use, unspecified, uncomplicated; F12.90 Cannabis use, unspecified, uncomplicated; F14.90 Cocaine use, unspecified, uncomplicated

== ENCOUNTER 2019-11-11 03:41 | Emergency (ER) | payer MEDICAID ==
[~2019-11-11] VITALS: Ht 175.3 cm; Wt 82.6 kg
[~2019-11-11 03:41] MED LIST changes: +HYDR-3363 PO; +NALT50TA4 PO; +SERT25TA21 PO
[2019-11-11] MEDS ORDERED: diphenhydrAMINE INJ 50MG/ML VIAL (J1200) IM ONE (03:45)
[2019-11-11] MEDS ORDERED: LORazepam 2 MG/ML VIAL (J2060) IM ONE (03:45)
[2019-11-11] MEDS ORDERED: HALOPERIDOL 5 MG/ML VIAL (J1630) IM ONE (03:45)
[2019-11-11] MEDS ORDERED: MIDAZOLAM INJ 2 MG/2 ML VIAL (J2250) As Ordered ONE (04:10)
[2019-11-11] MEDS ORDERED: MIDAZOLAM INJ 2 MG/2 ML VIAL (J2250) IV ONE ×3 (04:15→06:15)
[2019-11-11 04:45] LABS: ETHYL ALCOHOL (ETHANOL) 0.239 % (0.000-0.010)
[2019-11-11] MEDS ORDERED: NS 1,000 ML IV ONE (05:00)
[2019-11-11 05:49] LABS: HEMATOCRIT 47.8 % (42.0-52.0); HEMOGLOBIN 15.6 g/dl (13.5-17.5); MEAN CORPUSCULAR HEMOGLOBIN 30.6 pg (27.0-33.0); MEAN CORPUSCULAR HGB CONC 32.6 g/dl (32.0-36.5); MEAN CORPUSCULAR VOLUME 93.7 fl (80.0-96.0); PLATELET COUNT, AUTOMATED 347 10^3/uL (150-450); WHITE BLOOD COUNT 9.8 10^3/uL (4.0-10.0)
[2019-11-11 06:09] LABS: ACETAMINOPHEN LEVEL < 2.0 UG/ML (10.0-30.0); ALBUMIN 4.5 GM/DL (3.2-5.2); ALT/SGPT 24 U/L (12-78); BILIRUBIN,DIRECT 0.1 MG/DL (0.0-0.2); BILIRUBIN,TOTAL 0.4 MG/DL (0.2-1.0); BLOOD UREA NITROGEN 8 MG/DL (7-18); CALCIUM LEVEL 9.3 MG/DL (8.5-10.1); CARBON DIOXIDE LEVEL 29 MEQ/L (21-32); CHLORIDE LEVEL 105 MEQ/L (98-107); CREATININE FOR GFR 1.05 MG/DL (0.70-1.30); GLOMERULAR FILTRATION RATE > 60.0 (>60); GLUCOSE, FASTING 93 MG/DL (70-100); POTASSIUM SERUM 3.6 MEQ/L (3.5-5.1); SODIUM LEVEL 143 MEQ/L (136-145); TOTAL PROTEIN 8.2 GM/DL (6.4-8.2)
[2019-11-11 06:50] LABS: AMPHETAMINES LEVEL URINE NEGATIVE (NEGATIVE); BARBITURATES URINE NEGATIVE (NEGATIVE); BENZODIAZEPINES URINE POSITIVE (NEGATIVE); CANNABINOIDS URINE NEGATIVE (NEGATIVE); COCAINE METABOLITE URINE NEGATIVE (NEGATIVE); METHADONE URINE NEGATIVE (NEGATIVE); OPIATES URINE NEGATIVE (NEGATIVE); PHENCYCLIDINE URINE NEGATIVE (NEGATIVE)
[2019-11-11 14:45] VITALS: BP 125/82
== END 2019-11-11 17:32 | disposition home or self-care (01) ==
LOC: M ED 03:41
DX: F10.129 Alcohol abuse with intoxication, unspecified (principal); F14.10 Cocaine abuse, uncomplicated; F33.9 Major depressive disorder, recurrent, unspecified; Z79.899 Other long term (current) drug therapy
CPT/HCPCS: 80048; 80076; 80307; 84443; 85027; 96361; 96372; 96374; 96376; 99285; G0480; J1200; J1630; J2060; J2250

== ENCOUNTER 2021-03-04 01:40 | Emergency (ER) | payer OTHER ==
[~2021-03-04] VITALS: Ht 175.3 cm; Wt 68.2 kg
[2021-03-04] MEDS ORDERED: OLANZapine ORAL DISINTEGRATING TAB 5MG PO ONE (02:05)
[2021-03-04 02:16] LABS: HEMATOCRIT 45.4 % (42.0-52.0); HEMOGLOBIN 15.1 g/dl (13.5-17.5); MEAN CORPUSCULAR HEMOGLOBIN 30.5 pg (27.0-33.0); MEAN CORPUSCULAR HGB CONC 33.3 g/dl (32.0-36.5); MEAN CORPUSCULAR VOLUME 91.7 fl (80.0-96.0); PLATELET COUNT, AUTOMATED 300 10^3/uL (150-450); RED BLOOD COUNT 4.95 10^6/uL (4.30-6.10)
[2021-03-04 02:36] LABS: AMPHETAMINES LEVEL URINE NEGATIVE (NEGATIVE); BARBITURATES URINE NEGATIVE (NEGATIVE); BENZODIAZEPINES URINE NEGATIVE (NEGATIVE); CANNABINOIDS URINE NEGATIVE (NEGATIVE); COCAINE METABOLITE URINE NEGATIVE (NEGATIVE); METHADONE URINE NEGATIVE (NEGATIVE); OPIATES URINE NEGATIVE (NEGATIVE); PHENCYCLIDINE URINE NEGATIVE (NEGATIVE)
[2021-03-04 02:53] LABS: ACETAMINOPHEN LEVEL < 2.0 UG/ML (10.0-30.0); ALBUMIN 4.3 GM/DL (3.2-5.2); ALT/SGPT 19 U/L (12-78); BILIRUBIN,DIRECT 0.1 MG/DL (0.0-0.2); BILIRUBIN,TOTAL 0.5 MG/DL (0.2-1.0); BLOOD UREA NITROGEN 8 MG/DL (7-18); CALCIUM LEVEL 9.3 MG/DL (8.5-10.1); CARBON DIOXIDE LEVEL 26 MEQ/L (21-32); CHLORIDE LEVEL 109 MEQ/L (98-107); CREATININE FOR GFR 0.92 MG/DL (0.70-1.30); ETHYL ALCOHOL (ETHANOL) 0.275 % (0.000-0.010); GLOMERULAR FILTRATION RATE > 60.0 (>60); GLUCOSE, FASTING 90 MG/DL (70-100); POTASSIUM SERUM 3.5 MEQ/L (3.5-5.1); SALICYLATE LEVEL 1.9 MG/DL (5.0-30.0); SODIUM LEVEL 144 MEQ/L (136-145)
[2021-03-04 14:46] VITALS: BP 98/64
== END 2021-03-04 15:01 | disposition home or self-care (01) ==
LOC: M ED 01:40
DX: F43.0 Acute stress reaction (principal); F10.120 Alcohol abuse with intoxication, uncomplicated; F33.9 Major depressive disorder, recurrent, unspecified; Z91.5 Personal history of self-harm